=== PATIENT | female | born 1990 | race Caucasian/White ===

== ENCOUNTER 2021-09-03 12:38 | Emergency (ER) | payer OTHER ==
[~2021-09-03] VITALS: Ht 160 cm; Wt 102.1 kg
[~2021-09-03 12:38] MED LIST: APAP500 PO; DERMOPLAST SPRA56 ML; HYDROCORTISONE30 G9 RECTAL; IBUPROFEN 800800 M1 PO; LANOLIN56 GM; MUCINEX600 MG PO; NYQUIL D COLD295 ML PO; PRENATAL PO; TRINATE TABLET1 TAB; TUCKS MEDICATE1 EAC1 TOP
[2021-09-03 12:52] VITALS: BP 146/79
[2021-09-03 13:18] LABS: ABSOLUTE NEUTROPHILS 8.9 thou/uL (1.4-8.2); BASOPHILS 0.4 % (0.0-2.0); EOSINOPHILS 0.7 % (0.0-3.0); HEMATOCRIT 36.9 % (37.0-47.0); HEMOGLOBIN 12.5 gm/dL (12.0-15.0); LYMPHOCYTES 16.4 % (24.0-44.0); MCH 30.8 pg (26.0-34.0); MCV 90.8 fL (80.0-100.0); MONOCYTES 7.1 % (1.0-8.0); PLATELET COUNT 353 thou/uL (150-400); POLYS 75.4 % (36.0-66.0); RBC 4.06 mil/uL (4.20-5.00); RDW 12.5 % (10.5-14.5); WBC 11.8 thou/uL (4.0-11.0)
[2021-09-03 13:25] LABS: CREATININE 0.9 mg/dL (0.6-1.0); POTASSIUM 3.7 mmol/L (3.5-5.1)
[2021-09-03 13:32] LABS: ALBUMIN 3.5 g/dL (3.4-5.0); TOTAL BILIRUBIN 0.6 mg/dL (0.2-1.0); TOTAL PROTEIN 7.5 g/dL (6.4-8.2)
[2021-09-03] MEDS ORDERED: PREDNISONE 20 M20 MG PO (13:49)
[2021-09-03] MEDS ORDERED: HYDROXYZINE HCL25 M2 PO (13:49)
== END 2021-09-03 14:09 | disposition home or self-care (01) ==
LOC: ER 12:38
PROVIDERS: Emergency Medicine
DX: L51.9 Erythema multiforme, unspecified (principal)